=== PATIENT | female | born 1970 | race Caucasian/White ===

== ENCOUNTER 2018-02-07 10:34 | Inpatient (IN) | payer MEDICAID, MEDICARE, OTHER ==
[2018-02-07] VITALS (27 sets, daily range): BP systolic 82–165; BP diastolic 49–105
[~2018-02-07] VITALS: Ht 160 cm; Wt 105.2 kg
[2018-02-07] MEDS ORDERED: DEXAMETHASONE 10 MG/ML VIAL IV ONE (10:45)
[2018-02-07] MEDS ORDERED: PHENYTOIN SODIUM 500 MG in SODIUM CHLORIDE 0.9% 50 ML IV ONE (10:45)
[2018-02-07 11:02] LABS: BASOPHILS % 0.6 % (0.0-2.0); EOSINOPHILS % 0.2 % (0.0-5.0); HEMATOCRIT. 39.1 % (36.0-48.0); HEMOGLOBIN. 13.2 g/dL (12.0-16.0); LYMPHOCYTES % 16.9 % (20.0-50.0); MEAN CORPUSCULAR HEMOGLOBIN 30.8 pg (28.0-32.0); MEAN CORPUSCULAR VOLUME 90.8 fL (81.0-99.0); MEAN PLATELET VOLUME 7.4 fl (7.4-10.4); MONOCYTES % 4.5 % (2.0-8.0); NEUTROPHILS % 77.8 % (40.0-76.0); PLATELET 149 x1000/uL (130-400); RED BLOOD CELL COUNT 4.31 mill/uL (4.2-5.4); RED CELL DISTRIBUTION WIDTH 15.7 % (11.6-14.6)
[2018-02-07 11:08] LABS: CHLORIDE 106 mEq/L (98-107)
[2018-02-07] MEDS ORDERED: ETOMIDATE 2MG/ML 10ML VIAL IV ONE ×2 (11:15→14:44)
[2018-02-07] MEDS ORDERED: MIDAZOLAM HCL 50 MG in DEXTROSE 5% WATER 40 ML IV ONE (11:15)
[2018-02-07] MEDS ORDERED: VECURONIUM BROMIDE 10 MG/VIAL IV ONE ×2 (11:15→14:44)
[2018-02-07 11:17] LABS: HCG SCREEN NEGATIVE
[2018-02-07 11:19] LABS: INR 1.1; PARTIAL THROMBOPLASTIN TIME 24.8 sec (23.4-31.0)
[2018-02-07] MEDS ORDERED: MANNITOL 12.5G (25%) VIAL 50ML IV ONE (11:30)
[2018-02-07 11:40] LABS: BG BASE EXCESS -0.4 mmol/L (-2.0-2.0); BG CARBOXYHEMOGLOBIN 0.3 % (0.5-1.5); BG DEOXYHEMOGLOBIN 0.6 % (0.0-5.0); BG FRACTION INSPIRED OXYGEN 100; BG HCO3 ACT 20.2 mmol/L (22.0-26.0); BG METHEMOGLOBIN 0.1 % (0.0-1.5); BG OXYGEN SATURATION 99.4 % (92.0-98.5); BG PCO2 23.6 mmHg (35.0-45.0); BG SAMPLE SITE RIGHT RADIAL; BG TIDAL VOLUME(mL) 550 mL; BG VENT MODE VENT - A/C; BG VENT RATE 16 set
[2018-02-07] MEDS ORDERED: MIDAZOLAM HCL 50 MG in DEXTROSE 5% WATER 40 ML IV SCH (12:00)
[2018-02-07] MEDS ORDERED: DEXTROSE 50% WATER 50ML SYRINGE IV PRN (12:00)
[2018-02-07] MEDS ORDERED: NOREPINEPHRINE 4 MG in DEXT 5% WATER 246 ML IV ONE ×2 (13:15→13:30)
[2018-02-07 13:16] LABS: BG BASE EXCESS 0.7 mmol/L (-2.0-2.0); BG CARBOXYHEMOGLOBIN 0.4 % (0.5-1.5); BG DEOXYHEMOGLOBIN 2.9 % (0.0-5.0); BG FRACTION INSPIRED OXYGEN 100; BG HCO3 ACT 22.6 mmol/L (22.0-26.0); BG METHEMOGLOBIN 0.2 % (0.0-1.5); BG OXYGEN SATURATION 97.1 % (92.0-98.5); BG OXYHEMOGLOBIN 96.5 % (94.0-97.0); BG PCO2 29.1 mmHg (35.0-45.0); BG PH 7.508 (7.350-7.450); BG PO2 83.7 mmHg (75.0-100.0); BG SAMPLE SITE LEFT RADIAL; BG TIDAL VOLUME(mL) 550 mL; BG TOTAL HEMOGLOBIN 14.2 g/dL (12.0-18.0); BG VENT MODE VENT - A/C; BG VENT RATE 16 set
[2018-02-07] MEDS ORDERED: LIDOCAINE HCL 2% JELLY 5ML ONE (13:22)
[2018-02-07] MEDS ORDERED: LIDOCAINE HCL/PF 1% 10 MG/ML 5ML VIAL ONE (13:23)
[2018-02-07 14:12] LABS: CLARITY URINE CLEAR (CLEAR); COLOR URINE YELLOW (YELLOW); KETONES URINE 3+ (NEGATIVE); LEUKOCYTE ESTERASE URINE NEGATIVE (NEGATIVE); NITRITE URINE NEGATIVE (NEGATIVE); OCCULT BLOOD URINE NEGATIVE (NEGATIVE); PROTEIN URINE NEGATIVE (NEGATIVE)
[2018-02-07] MEDS ORDERED: SODIUM BICARBONATE 7.5% 0.9 MEQ/ML 50ML SYR IV ONE (14:44)
[2018-02-07] MEDS ORDERED: NORMAL SALINE 0.9% 10 ML SYR ONE (14:44)
[2018-02-07] MEDS ORDERED: EPINEPHRINE 0.1MG/ML (1:10,000) 10ML SYR ONE (14:44)
[2018-02-07] MEDS ORDERED: VANCOMYCIN 750 MG in DEXT 5% WATER 250 ML IV STA (14:45)
[2018-02-07] MEDS ORDERED: PIPERACILLIN/TAZ 3.375G PREMIX 50 ML IV ONE (14:45)
[2018-02-07] MEDS ORDERED: VANCOMYCIN 750 MG PREMIX 150 ML IV NR (15:15)
[2018-02-07] MEDS: BLOOD SUGAR DIAGNOSTIC STRIP TEST SCH (17:58)
[2018-02-07] MEDS: DEXT 5%/LACTATED RINGERS 1,000 ML IV SCH (18:22)
[2018-02-07] MEDS: INSULIN LISPRO 100 UNITS/ML SUBCUT SCH ×2 (18:24→21:32)
[2018-02-07] MEDS: CEFEPIME 1,000 MG in DEXTROSE 5% WATER 50 ML IV SCH (20:59)
[2018-02-07] MEDS: PHENYTOIN SODIUM 100MG/2ML VIAL IV SCH (20:59)
[2018-02-07] MEDS ORDERED: PHENYTOIN SODIUM 100MG/2ML VIAL IV SCH (22:00)
[2018-02-07] MEDS: METRONIDAZOLE 500 MG PREMIX 100 ML IV SCH (23:00)
[2018-02-08] VITALS (63 sets, daily range): BP systolic 70–144; BP diastolic 48–117
[2018-02-08] MEDS: PHENYTOIN SODIUM 100MG/2ML VIAL IV SCH ×3 (04:08→20:11)
[2018-02-08] MEDS: METRONIDAZOLE 500 MG PREMIX 100 ML IV SCH ×3 (06:09→23:07)
[2018-02-08 06:10] LABS: BASOPHILS % 0.1 % (0.0-2.0); EOSINOPHILS % 0.1 % (0.0-5.0); HEMATOCRIT. 44.9 % (36.0-48.0); HEMOGLOBIN. 15.3 g/dL (12.0-16.0); LYMPHOCYTES % 9.6 % (20.0-50.0); MEAN CORPUSCULAR HEMOGLOBIN 30.6 pg (28.0-32.0); MEAN CORPUSCULAR VOLUME 89.8 fL (81.0-99.0); MEAN PLATELET VOLUME 8.1 fl (7.4-10.4); MONOCYTES % 4.9 % (2.0-8.0); NEUTROPHILS % 85.3 % (40.0-76.0); PLATELET 160 x1000/uL (130-400); RED BLOOD CELL COUNT 5.01 mill/uL (4.2-5.4); RED CELL DISTRIBUTION WIDTH 15.7 % (11.6-14.6)
[2018-02-08] MEDS: BLOOD SUGAR DIAGNOSTIC STRIP TEST SCH ×4 (06:30→23:00)
[2018-02-08] MEDS: INSULIN LISPRO 100 UNITS/ML SUBCUT SCH ×4 (06:41→23:05)
[2018-02-08 06:54] LABS: CHLORIDE 119 mEq/L (98-107)
[2018-02-08] MEDS: NOREPINEPHRINE 4 MG in DEXT 5% WATER 250 ML IV PRN ×3 (07:47→20:08)
[2018-02-08] MEDS: CEFEPIME 1,000 MG in DEXTROSE 5% WATER 50 ML IV SCH ×2 (08:59→20:50)
[2018-02-08] MEDS ORDERED: PANTOPRAZOLE SODIUM 40 MG/VIAL IV SCH (09:00)
[2018-02-08 09:33] LABS: BG BASE EXCESS -3.4 mmol/L (-2.0-2.0); BG CARBOXYHEMOGLOBIN 0.4 % (0.5-1.5); BG DEOXYHEMOGLOBIN 0.5 % (0.0-5.0); BG FRACTION INSPIRED OXYGEN 100; BG HCO3 ACT 17.8 mmol/L (22.0-26.0); BG METHEMOGLOBIN 0.4 % (0.0-1.5); BG OXYGEN SATURATION 99.5 % (92.0-98.5); BG OXYHEMOGLOBIN 98.7 % (94.0-97.0); BG PCO2 23.8 mmHg (35.0-45.0); BG PH 7.491 (7.350-7.450); BG PO2 267.8 mmHg (75.0-100.0); BG SAMPLE SITE RIGHT RADIAL; BG TIDAL VOLUME(mL) 550 mL; BG TOTAL HEMOGLOBIN 15.5 g/dL (12.0-18.0); BG VENT MODE VENT - A/C; BG VENT RATE 12 set
[2018-02-08] MEDS ORDERED: KCL 20MEQ/100ML PREMIX 100 ML IV NR ×2 (10:00→12:00)
[2018-02-08] MEDS: DEXT 5%/LACTATED RINGERS 1,000 ML IV SCH (13:06)
[2018-02-08] MEDS ORDERED: SODIUM CHLORIDE 0.9% 1,000 ML IV SCH ×2 (18:15→19:15)
[2018-02-08] MEDS: DEXAMETHASONE 4MG/ML 1ML VIAL IV SCH (20:12)
[2018-02-09] VITALS (112 sets, daily range): BP systolic 43–191; BP diastolic 27–118
[2018-02-09] MEDS: NOREPINEPHRINE 4 MG in DEXT 5% WATER 250 ML IV PRN ×3 (01:13→10:30)
[2018-02-09] MEDS: DEXT 5%/LACTATED RINGERS 1,000 ML IV SCH (02:20)
[2018-02-09] MEDS: PHENYTOIN SODIUM 100MG/2ML VIAL IV SCH (04:12)
[2018-02-09] MEDS: DEXAMETHASONE 4MG/ML 1ML VIAL IV SCH ×2 (04:13→09:05)
[2018-02-09 05:23] LABS: BASOPHILS % 0.3 % (0.0-2.0); EOSINOPHILS % 0.1 % (0.0-5.0); HEMATOCRIT. 43.4 % (36.0-48.0); LYMPHOCYTES % 11.4 % (20.0-50.0); MEAN CORPUSCULAR HEMOGLOBIN 30.5 pg (28.0-32.0); MEAN CORPUSCULAR VOLUME 94.4 fL (81.0-99.0); MEAN PLATELET VOLUME 8.4 fl (7.4-10.4); MONOCYTES % 6.8 % (2.0-8.0); NEUTROPHILS % 81.4 % (40.0-76.0); PLATELET 115 x1000/uL (130-400); RED CELL DISTRIBUTION WIDTH 16.7 % (11.6-14.6)
[2018-02-09] MEDS: BLOOD SUGAR DIAGNOSTIC STRIP TEST SCH (05:55)
[2018-02-09] MEDS: METRONIDAZOLE 500 MG PREMIX 100 ML IV SCH (05:58)
[2018-02-09] MEDS: INSULIN LISPRO 100 UNITS/ML SUBCUT SCH (06:06)
[2018-02-09] MEDS ORDERED: DEXTROSE 5% WATER 1,000 ML IV SCH (07:45)
[2018-02-09 08:30] LABS: BG BASE EXCESS -3.6 mmol/L (-2.0-2.0); BG CARBOXYHEMOGLOBIN 0.3 % (0.5-1.5); BG FRACTION INSPIRED OXYGEN 100; BG METHEMOGLOBIN 0.3 % (0.0-1.5); BG OXYHEMOGLOBIN 97.4 % (94.0-97.0); BG PCO2 28.8 mmHg (35.0-45.0); BG PH 7.437 (7.350-7.450); BG PO2 112.6 mmHg (75.0-100.0); BG SAMPLE SITE LEFT BRACHIAL; BG TIDAL VOLUME(mL) 550 mL; BG TOTAL HEMOGLOBIN 15.9 g/dL (12.0-18.0); BG VENT MODE VENT - A/C; BG VENT RATE 12 set
[2018-02-09] MEDS ORDERED: DESMOPRESSIN ACETATE 4MCG/ML AMP SUBCUT SCH (09:00)
[2018-02-09 09:17] LABS: BG BASE EXCESS -6.6 mmol/L (-2.0-2.0); BG CARBOXYHEMOGLOBIN 0.7 % (0.5-1.5); BG DEOXYHEMOGLOBIN 26.6 % (0.0-5.0); BG FRACTION INSPIRED OXYGEN 44; BG HCO3 ACT 23.1 mmol/L (22.0-26.0); BG METHEMOGLOBIN 0.3 % (0.0-1.5); BG OXYGEN SATURATION 73.1 % (92.0-98.5); BG OXYHEMOGLOBIN 72.4 % (94.0-97.0); BG PCO2 63.3 mmHg (35.0-45.0); BG PO2 48.1 mmHg (75.0-100.0); BG SAMPLE SITE RIGHT RADIAL; BG TOTAL HEMOGLOBIN 16.5 g/dL (12.0-18.0); BG VENT MODE NASAL CANNULA
[2018-02-09] MEDS ORDERED: INSULIN GLARGINE UD 100 UNITS/ML SYR SUBCUT SCH (10:00)
[2018-02-09] MEDS: NOREPINEPHRINE 8 MG in DEXT 5% WATER 242 ML IV PRN ×2 (13:00→20:07)
== END 2018-02-09 22:35 | disposition expired | DRG 720 ==
LOC: ER 10:34 → MICUNO 11:19 → EDBEDREQ 11:22 → ENRESERV 16:00
PROVIDERS: ADMIT Internal Medicine; ATTEND Internal Medicine
PROC: 0BH17EZ Insertion of Endotracheal Airway into Trachea, Via Natural or Artificial Opening (ICD-10-PCS; principal; 2018-02-07)
PROC: 5A12012 Performance of Cardiac Output, Single, Manual (ICD-10-PCS; 2018-02-07)
PROC: 5A1945Z Respiratory Ventilation, 24-96 Consecutive Hours (ICD-10-PCS; 2018-02-07)
PROC: 05HY33Z Insertion of Infusion Device into Upper Vein, Percutaneous Approach (ICD-10-PCS; 2018-02-07)
PROC: B54MZZA Ultrasonography of Right Upper Extremity Veins, Guidance (ICD-10-PCS; 2018-02-07)
DX: A41.9 Sepsis, unspecified organism (principal); G93.6 Cerebral edema; J96.00 Acute respiratory failure, unspecified whether with hypoxia or hypercapnia; I46.9 Cardiac arrest, cause unspecified; J69.0 Pneumonitis due to inhalation of food and vomit; G93.41 Metabolic encephalopathy; C79.31 Secondary malignant neoplasm of brain; E44.1 Mild protein-calorie malnutrition; Z66 Do not resuscitate; E66.9 Obesity, unspecified; E87.0 Hyperosmolality and hypernatremia; R40.2430 Glasgow coma scale score 3-8, unspecified time; E87.6 Hypokalemia; E87.3 Alkalosis; Z92.21 Personal history of antineoplastic chemotherapy; Z90.10 Acquired absence of unspecified breast and nipple; Z92.3 Personal history of irradiation; Z68.41 Body mass index [BMI] 40.0-44.9, adult; Z74.01 Bed confinement status; Z90.11 Acquired absence of right breast and nipple
CPT/HCPCS: 36415; 36569; 36600; 70450; 71045; 76937; 78615; 80048; 80053; 81003; 82375; 82805; 82962; 83605; 83880; 84132; 84484; 84703; 85025; 85610; 85730; 86850; 86900; 87040; 87070; 87086; 93005; A4216; A9512; C1725; C1769; C9113; J0692; J1100; J1165; J1815; J2150; J2250; J2543; J2597; J3370; J3480; J3490; J7030; J7060; J7070